=== PATIENT | male | born 1955 | race Caucasian/White ===

== ENCOUNTER 2018-12-13 19:07 | Emergency (ER) | payer OTHER, SELFPAY ==
[2018-12-13 19:09] VITALS: BP 161/99; PULSE 90; RESP 18; TEMP 36.7; O2SAT 95; BMI 32.6
--- NOTE | 2018-12-13 19:51 | ED.VIS.GEN ---
History of Present Illness Chief Complaint: Cellulitis Informant: Patient Onset: Days Context: Gradual Onset Timing: Waxes and wanes Current Severity: Moderate Maximum Severity: Moderate Narrative: Patient presents with redness to the left hsu. He states 3 days ago he felt as if he got the flu. He had fever, nausea and vomiting, diarrhea, body aches. He noted a small red patch to the anterior left hsu at that time. Patient states fever seems to be improved today. He still does not feel well. He noted erythema over the entire anterior hsu. He went to the local urgent care who sent him here for concern of DVT versus cellulitis. Past Medical History - Allergies and Home Meds Allergies/Adverse Reactions: Allergies No Known Allergies Allergy (Verified 12/13/18 19:11) Primary Care Physician: Radha Gallardo [Primary Care Provider] - Prior records reviewed: Yes Past Medical History: - - Review Lives: Spouse/ Significant Other Review of Systems General: Reports: Chills, Fever Eyes: Denies: Visual changes - bilaterally ENT: Denies: Bilateral ear pain Cardiovascular: Denies: Chest pain Respiratory: Denies: Dyspnea, Cough Gastrointestinal: Reports: Nausea, Vomiting, Diarrhea. Denies: Abdominal pain Musculoskeletal: Reports: Myalgias, Extremity Pain Skin: Reports: Rash - Cellulitis left hsu Neurological: Denies: Headache, Weakness Hematologic: Denies: Easy bruising Allergy: Denies: Uticaria Physical Exam Vital Signs/Narrative: Vital Signs Temp Pulse Resp BP Pulse Ox 12/13/18 19:09 98.0 F 90 18 161/99 H 95 Inital Vital Signs reviewed: Yes General: Well nourished, Well developed Head: Normocephalic Eyes: Perrl, EOMI ENT: Moist mucous membranes Neck: Supple Cardiovascular: Regular rate, Regular rhythm Respiratory: No distress, CTA bilaterally Abdomen: Soft, Nontender Extremities: - - Skin erythema and warmth over the anterior left hsu consistent with cellulitis. No calf tenderness or palpable cords. No clinical sign of DVT. Skin: - - Cellulitis left hsu. Negative for: Normal color Neurological: Alert, Oriented x3 Psychological: Normal affect Diagnostic/Tx/Re-eval Laboratory Results 12/13/18 12/13/18 19:55 19:55 WBC 9.8 RBC 4.85 Hgb 15.8 Hct 45.5 MCV 93.8 MCH 32.6 H MCHC 34.7 RDW Std Deviation 42.0 RDW Coeff of Alysa 12.1 Plt Count 161 MPV 10.3 Immature Gran % (Auto) 0.600 Neut % (Auto) 77.7 H Lymph % (Auto) 13.0 L Harris % (Auto) 7.8 Eos % (Auto) 0.4 Baso % (Auto) 0.5 Absolute Neuts (auto) 7.6 Absolute Lymphs (auto) 1.28 Nucleated RBC % 0 Sodium 133 L Potassium 3.6 Chloride 99 Carbon Dioxide 26.0 Anion Gap 8 BUN 20 H Creatinine 1.08 Estim Creat Clear Calc 78.84 Est GFR (MDRD) Af Amer 89 Est GFR (MDRD) Non-Af 74 BUN/Creatinine Ratio 18.5 Glucose 146 H Calcium 9.2 - Medical Decision Making Blood cultures were drawn. Patient was given p.o. Bactrim and Keflex. He was given IV fluids. Test results discussed with patient and at bedside. Area of erythema on his left leg is outlined. The largest area over the anterior hsu measures 26 x 12 cm. He is given return instructions. Prescriptions for antibiotics will be provided. ED Disposition - Plan for ED Patient: Disposition: Home or Assisted Living Diagnosis: Cellulitis Instructions: Cellulitis Prescriptions: Smz/Tmp Ds [Bactrim Ds] 1 tablet PO BID #20 tablet Cephalexin [Keflex] 500 mg PO Q6 #40 capsule Referrals: Radha Gallardo [Primary Care Provider] - 1 Week
[2018-12-13] MEDS: 0.9% Normal Saline 1,000 ML 1000 ML IV (19:59)
[2018-12-13] MEDS: Smz/Tmp Ds Tablet 1 TABLET PO (20:01)
[2018-12-13] MEDS: Cephalexin 250 MG Capsule 500 MG PO (20:01)
[2018-12-13 20:10] LABS: Absolute Lymphocyte Count 1.28 X10^3/uL (0.83-4.51); Absolute Neutrophil Count 7.6 X10^3/uL (2.0-7.7); Basophil# 0.05 X10^3/uL; Basophil% 0.5 % (0-1); Eosinophil# 0.04 X10^3/uL; Eosinophils% 0.4 % (0-5); Hematocrit 45.5 % (40-54); Hemoglobin 15.8 g/dL (13.0-16.5); Lymphocyte # 1.28 X10^3/ul (4.0); Mean Corp Hgb Conc 34.7 g/dL (32-36); Mean Corpuscular Hgb 32.6 pg (27.0-32.0); Mean Corpuscular Volume 93.8 fL (80-94); Mean Platelet Vol. 10.3 fl (6.2-12.0); Monocyte# 0.77 X10^3/uL; Monocyte% 7.8 % (0-10); NRBC Flagged by Analyzer 0 % (0-5); Neutrophil # 7.64 X10^3/uL (2.7-7.7); Neutrophil % 77.7 % (47-70); Platelet Count 161 K/mm3 (150-450); RBC Distribution Width CV 12.1 % (11.6-14.6); Red Blood Count 4.85 M/mm3 (4.6-6.2); White Blood Count 9.8 K/mm3 (4.4-11.0)
[2018-12-13 20:29] LABS: Anion Gap 8 (5-15); BUN 20 mg/dL (7-18); BUN/Creat Ratio 18.5 RATIO (10-20); Calcium,Total 9.2 mg/dL (8.5-10.1); Chloride 99 mmol/L (98-107); Creatinine, Serum 1.08 mg/dL (0.70-1.30); EST Glomerular Filtration Rate 74 mL/min (>60); Est Glom Filt Rate - Afr Amer 89 mL/min (>60); Estimated Creatinine Clearance 78.84 ml/min; Glucose 146 mg/dL (74-106); Potassium 3.6 mmol/L (3.5-5.1); Sodium Level 133 mmol/L (136-145)
[2018-12-13] MEDS: 0.9% Normal Saline 1,000 ML 150 ML IV (20:43)
[2018-12-13 21:11] VITALS: BP 149/93; PULSE 72; RESP 16; O2SAT 97
== END 2018-12-13 21:15 | disposition home or self-care (01) ==
PROVIDERS: Emergency Provider Emergency Medicine; Family Provider Family Medicine; PCP Family Medicine
DX: L03.116 Cellulitis of left lower limb (principal)
CPT/HCPCS: 36415; 80048; 85025; 87040; 87077; 87186; 96360; 96361; 99284; J7030; A4216